=== PATIENT | male | born 1930 | race Caucasian/White ===

== ENCOUNTER 2017-06-12 16:48 | Inpatient (IN) | payer MEDICARE, OTHER ==
--- NOTE | 2017-06-12 17:16 | ED Physician Documentation ---
Psychological Disorders - HISTORIAN Historian: patient <Vita Gandara - Last Filed: 06/12/17 19:27> - HISTORIAN Historian: patient - HPI Chief Complaint: Altered Mental Status Onset: days ago Duration: gradual onset Severity: moderate - ROS CONST: none. denies: fever, chills - PAST HX Psychiatric problems: schizophrenia - Social HX Smoking History: non-smoker Marital Status: single Drug Use: none - Family HX Family HX: mental illness - REVIEWED ASSESSMENTS Nursing Assessment Reviewed: Yes Vitals Reviewed: Yes <Maximilian Joy - Last Filed: 06/26/17 15:27> - HPI Additional Information: 86 yo white male with known paranoid schizophrenia,hypothyroidism, Parkinson disease, history of subdural hematoma with seizure disorder. Patient has had numerous admissions for decompensation in his mental status related to paranoid schizophrenia and depression. Over the last week patient has not been sleeping as well. Over the last4-5 days he has been getting more gradually confused. He has been reported by nursing staff not to be eating or drinking as well. Lab work done today shows elevated BUN and creatinine above baseline, urine analysis is consistent with UTI. Patient is not known to had any fever or chill, he denies any UTI symptoms at this time. Patient has (Maximilian Joy) - PAST HX Allergies/Adverse Reactions: Allergies Allergy/AdvReac Type Severity Reaction Status Date / Time divalproex sodium Allergy Verified 06/12/17 17:11 [From Depakote] gemfibrozil Allergy Verified 06/12/17 17:11 meperidine Allergy Verified 06/12/17 17:11 Home Medications: Ambulatory Orders Medication Instructions Recorded Brimonidine Tartrate [Alphagan P] 1 drop .ROUTE TID 09/24/13 Docusate Sodium [Colace] 100 mg PO BID 09/24/13 Latanoprost [Xalatan] 1 drop EACHEYE HS 09/24/13 Tamsulosin HCl [Flomax] 0.8 mg PO D 09/24/13 Timolol Maleate 1 drop EACHEYE BID 09/24/13 Levothyroxine Sodium [Synthroid] 125 mcg PO DAILY 03/08/14 Polyethylene Glycol 3350 [Miralax] 17 gm PO 1100 03/08/14 Clozapine 125 mg PO HS 03/01/15 Pantoprazole Sodium [Protonix] 40 mg PO BID 03/01/15 Potassium Chloride [Klor-Con M20] 20 meq PO DAILY 03/01/15 Bicalutamide 50 mg PO D 03/03/15 Clozapine [Fazaclo] 25 mg PO AM 03/03/15 Melatonin 1 tab PO HS 06/12/17 Melatonin 4 tab PO HS 06/12/17 Oxybutynin Chloride [Ditropan Xl] 1 tab PO HS 06/12/17 Ciprofloxacin HCl [Cipro] 500 mg PO BID #14 tablet 06/13/17 - VITAL SIGNS Vital Signs: Vital Signs Temp Pulse Resp BP Pulse Ox 99 F 56 L 16 97/48 93 06/13/17 14:22 06/13/17 14:22 06/13/17 14:22 06/13/17 14:22 06/13/17 14:22 - Lab Results Lab Results: Lab Results 06/12/17 06/12/17 06/12/17 17:20 17:20 17:20 WBC 7.30 K/ul K/ul (4.00-12.00) RBC 4.63 M/ul M/ul (3.90-5.20) Hgb 12.9 g/dL g/dL (12.0-18.0) Hct 39.8 % % (37.0-53.0) MCV 85.9 fl fl (80.0-100.0) MCH 27.8 pg L pg (28.0-34.0) MCHC 32.4 g/dL g/dL (30.0-36.0) RDW 14.6 % H % (11.3-14.3) Plt Count 260 K/mm3 K/mm3 (130-400) Neut % (Auto) 80.7 % H % (39.0-79.0) Lymph % (Auto) 12.0 % L % (16.0-50.0) [place] % (Auto) 5.9 % % (0.0-11.0) Eos % (Auto) 0.4 % % (0.0-6.8) Baso % (Auto) 0.1 (0.0-1.5) Neut # (Auto) 5.9 # k/uL # k/uL (1.4-7.7) Lymph # (Auto) 0.9 # k/uL # k/uL (0.6-4.0) [place] # (Auto) 0.4 # k/uL # k/uL (0.0-0.9) Eos # (Auto) 0.0 # k/uL # k/uL (0.0-0.6) Baso # (Auto) 0.0 # k/uL # k/uL (0.0-0.5) Reactive Lymphs % 0.9 % % (0.0-5.0) Reactive Lymphs # 0.1 # k/uL # k/uL (0.0-0.8) Sodium 151 mmol/L H mmol/L (136-145) Potassium 4.2 mmol/L mmol/L (3.5-5.1) Chloride 111 mmol/L H mmol/L (98-107) Carbon Dioxide 21 mmol/L L mmol/L (22-30) BUN 37 mg/dL H mg/dL (9-20) Creatinine 1.20 mg/dL mg/dL (0.66-1.25) Estimated Creat Clear 51 Est GFR ( Amer) > 60 (60 - ) Est GFR (Non-Af Amer) > 60 (60 - ) Glucose 118 mg/dL H mg/dL (74-106) Lactate 1.5 U/L U/L (0.7-2.1) Calcium 9.8 mg/dL mg/dL (8.4-10.2) Total Bilirubin 1.1 mg/dL mg/dL (0.2-1.3) AST 54 U/L H U/L (15-46) ALT 34 U/L U/L (13-69) Alkaline Phosphatase 107 U/L U/L (38-126) Total Protein 9.2 g/dL H g/dL (6.3-8.2) Albumin 5.0 g/dL g/dL (3.5-5.0) - Orders Orders: ED Orders Category Date Time Status Place IV Lock 1T Care 06/12/17 17:[address] BRAIN W/O CONTRAST Stat Exams 06/12/17 Completed BLOOD CULTURE Routine Lab 06/12/17 17:45 Completed CBC/PLATELET/DIFF Routine Lab 06/12/17 17:20 Completed CMP Routine Lab 06/12/17 17:20 Completed LACTATE Routine Lab 06/12/17 17:20 Completed 0.9 % Sodium Chloride [Normal Saline] 1,000 ml Med 06/12/17 17:30 Discontinued IV .Q1H Psych Physical Exam - Physical Exam General Appearance: no acute distress ENT: nml ENT inspection, pharynx nml Eyes: PERRL Mental Status: disoriented Orientation: disoriented Cranial Nerves: CN's intact as tested Sensory, Motor: nml motor response, nml sensory response, nml reflexes, nml gait Neck/Back: normal inspection Respiratory: no resp distress, chest non-tender, breath sounds normal CVS: reg rate & rhythm, heart sounds normal Abdomen: non-tender, no organomegaly, nml bowel sounds, no distention Skin: warm/dry, normal color Extremities: non-tender, normal range of motion, no evidence of injury, no edema <Vita Gandara - Last Filed: 06/12/17 19:27> Discharge <Vita Gandara - Last Filed: 06/12/17 19:27> Decision to Admit: [id number] Date of Decison to Admit: 06/12/17 Decision Time: 19:42 <Maximilian Joy - Last Filed: 06/26/17 15:27> Clincal Impression: Altered mental status Qualifiers: Qualified Code(s): R40.2412 - Condition: Good
[2017-06-12 17:22] LABS: BASOPHILS % 0.1 (0.0-1.5); EOSINOPHILS % 0.4 % (0.0-6.8); MEAN CORPUSCULAR HEMOGLOBIN 27.8 pg (28.0-34.0); MEAN CORPUSCULAR VOLUME 85.9 fl (80.0-100.0); MONOCYTES % 5.9 % (0.0-11.0); NEUTROPHILS # 5.9 # k/uL (1.4-7.7)
[2017-06-12 17:27] LABS: eGFR (Non-African) > 60
[2017-06-12] MEDS ORDERED: 0.9 % SODIUM CHLORIDE 1,000 ML IV SCH (17:30)
[2017-06-12] MEDS ORDERED: 0.9 % SODIUM CHLORIDE 1,000 ML IV ONE (17:50)
--- NOTE | 2017-06-12 18:02 | Diagnostic Imaging Report ---
AMAYA CHENG [facility] [address] [facility] [address] [address] Report Submission Date: June 12, 2017 5:51:22 PM CDT Patient Study Name: ARLEY BATISTA Date: June 12, 2017 5:29:29 PM CDT Modality Type: CT\SR Gender: M Description: CT BRAIN W/O CONTRAST : 30 Institution: [facility] Physician: AMAYA CHENG Examination: CT head without contrast History: PT INCOHERENT (Hx) Comparison exam: None available Technique: Noncontrast head CT protocol. Findings: Ventricles and sulci are prominent. Cerebrocerebellar parenchyma demonstrates periventricular low attenuation consistent with small vessel disease. No evidence for parenchymal hemorrhage. No evidence for mass or mass effect. No midline shift. No extra axial fluid collections. Partial visualization of the paranasal sinuses, mastoid air cells, orbits, skull and scalp without gross irregularity. Impression: Advanced age related changes. No acute parenchymal process. No hemorrhage. Electronically signed on June 12, 2017 5:51:22 PM CDT by: Roberto Carlos Barnes [facility] SYSTEMKatie
[2017-06-12] MEDS: LEVOTHYROXINE SODIUM 100 MCG TABLET PO SCH (19:55)
[2017-06-12] MEDS: 0.9 % SODIUM CHLORIDE 1,000 ML IV SCH (20:10)
[2017-06-12] MEDS: DOCUSATE SODIUM 100 MG CAPSULE PO SCH (20:12)
[2017-06-12] MEDS: MELATONIN 3 MG TABLET PO SCH ×2 (20:12)
[2017-06-12] MEDS: TIMOLOL MALEATE 0.5% OPTH OP SCH (20:13)
[2017-06-12] MEDS: PANTOPRAZOLE SODIUM 40 MG TABLET PO SCH (20:13)
[2017-06-12] MEDS ORDERED: CIPROFLOXACIN/D5W 200 ML IV ONE (20:17)
[2017-06-12] MEDS ORDERED: CIPROFLOXACIN/D5W 400 MG in PREMIX BAG 1 BAG IV SCH (20:30)
[2017-06-12] MEDS ORDERED: LATANOPROST 0.005% OPTH DROP OP SCH (21:00)
[2017-06-12 22:13] VITALS: BMI 22.9
[2017-06-13] MEDS ORDERED: LEVOTHYROXINE SODIUM 25 MCG TABLET ONE (04:17)
[2017-06-13] MEDS: LEVOTHYROXINE SODIUM 100 MCG TABLET PO SCH (05:10)
[2017-06-13 06:44] LABS: BASOPHILS % 0.2 (0.0-1.5); MEAN CORPUSCULAR HEMOGLOBIN 27.4 pg (28.0-34.0); MEAN CORPUSCULAR VOLUME 83.5 fl (80.0-100.0); MONOCYTES % 4.9 % (0.0-11.0); NEUTROPHILS # 3.8 # k/uL (1.4-7.7)
[2017-06-13 06:57] LABS: eGFR (Non-African) > 60
--- NOTE | 2017-06-13 07:59 | History and Physical Report ---
History of Present Illnes - History of Present Illness Reason for Visit: Increasing mental confusion, dehydration, UTI History of Present Illness: 86 yo white male with known paranoid schizophrenia, hypothyroidism, Parkinson disease, history of subdural hematoma with seizure disorder. Patient has had numerous admissions for decompensation in his mental status related to paranoid schizophrenia and depression. Patient currently esides in [facility]. Over the last week the staff states that the patient has not been sleeping as well. Over the last4-5 days he has been getting more gradually confused. He has been reported by nursing staff not to be eating or drinking as well. Lab work done today shows elevated BUN and creatinine above baseline, urine analysis is consistent with UTI. Patient is not known to had any fever or chill, he denies any UTI symptoms at this time. Patient was brought to the ED for evaluation. He was felt to be dehydrated and having a UTI. Attempt to transfer to the [facility] but no beds available at this time. Patient admitted to [facility] for treatemnt until a [place] bed becomes available. 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, Seizure, Other (parkinson's) Psych: Depression, Schizophrenia ([facility] Renal/: Other (Prostate cancer) Endocrine: Hypothyroidism - Past Surgical History Past Surgical History: None - Past Family History Mother Family History: (82yo advanced age) Father Family History: (80yo, advanced age) - Past Social History Smoke: No Occupation: retired Alcohol: None Drugs: None Lives: Intermediate Domestic Violence: Negative - Health Maintenance Health Maintenance: Influenza Vaccine, Pneumococcal Vaccine Influenza Vaccine: Current for this Influenza Season Pneumonia Vaccine: Yes Resuscitation Status: Resusciation Status Resuscitation Status Full Code - Unable to Obtain History Unable to Obtain: No Review of Systems - Review of Systems Constitutional: negative: Fever, Chills, Weakness Eyes: negative: pain, vision change ENT: Nose Discharge (clear), Nose Congestion. negative: Ear Pain, Ear Discharge , Nose Pain, Mouth Pain, Mouth Swelling Respiratory: negative: Cough, Shortness of Breath, Hemoptysis, SOB with Excertion, Pleuritic Pain, Sputum, Wheezing Cardiovascular: negative: Chest Pain, Palpitations, Orthopnea, Edema, Light Headedness Gastrointestinal: Constipation (last ). negative: Nausea, Vomiting, Abdominal Pain, Diarrhea, Melena ( ), Hematochezia (last BM today) Genitourinary: Other (some urgency). negative: Dysuria, Frequency, Incontinence , Hematuria Musculoskeletal: Neck Pain (at baseline). negative: Shoulder Pain, Arm Pain, Back Pain, Hand Pain, Leg Pain Skin: negative: Rash, Lesions Neurological: Confusion. negative: Weakness, Numbness, Incoordination, Seizures (last seizure over one year ago) - Medications/Allergies Allergies/Adverse Reactions: Allergies Allergy/AdvReac Type Severity Reaction Status Date / Time divalproex sodium Allergy Verified 06/12/17 17:11 [From Depakote] gemfibrozil Allergy Verified 06/12/17 17:11 meperidine Allergy Verified 06/12/17 17:11 Home Medications: Home Medications Melatonin [Melatonin] 1 tab PO 06/12/17 Melatonin [Melatonin] 4 tab PO 06/12/17 Oxybutynin Chloride [Ditropan Xl] 1 tab PO 06/12/17 Current Inpatient Medications: Current Inpatient Medications Docusate Sodium (Colace) 100 mg PO BID [facility] Last Admin: 06/12/17 20:12 Dose: 100 mg Sodium Chloride (Normal Saline) 1,000 mls @ 100 mls/hr IV Q10H [facility] Last Admin: 06/12/17 20:10 Dose: 100 mls/hr CIPROFLOXACIN/D5W 400 mg/ (PREMIX BAG) 200 mls @ 200 mls/hr IV QD [facility] Last Admin: 06/12/17 20:20 Dose: 200 mls/hr Latanoprost (Xalatan) 1 drop OP [facility] Last Admin: 06/12/17 20:14 Dose: Not Given Levothyroxine Sodium (Synthroid) 125 mcg PO 0700 [facility] Last Admin: 06/13/17 05:10 Dose: 125 mcg Melatonin (Melatonin) 5 mg PO [facility] Last Admin: 06/12/17 20:12 Dose: 3 mg Pantoprazole Sodium (Protonix) 40 mg PO BID [facility] Last Admin: 06/12/17 20:13 Dose: 40 mg Polyethylene Glycol (Miralax) 17 gm PO 1100 [facility] Potassium Chloride (Klor-Con M20) 20 meq PO DAILY [facility] Tamsulosin HCl (Flomax) 0.8 mg PO D [facility] Timolol Maleate (Timoptic 0.5% Opt) 1 drop OP BID [facility] Last Admin: 06/12/17 20:13 Dose: 1 drop Exam - Exam Vital Signs: Vital Signs (72 hours) 06/12/17 06/12/17 06/12/17 19:52 20:00 22:00 Temperature 96.9 F L Pulse Rate [ 63 63 63 Left Pulse ox] Respiratory 16 16 Rate Blood Pressure 145/69 [Left Arm] O2 Sat by Pulse 96 Oximetry 06/13/17 06/13/17 02:00 06:00 Temperature 97.8 F 98.9 F Pulse Rate [ 60 79 Left Pulse ox] Respiratory 16 14 Rate Blood Pressure 115/61 139/58 [Left Arm] O2 Sat by Pulse 93 94 Oximetry General: Alert, Oriented to Person, Oriented to Place (knew he was at a hosptial ), Cooperative, No acute distress. No: Oriented to Time (did not know month or season) HEENT: Atraumatic, PERRLA, EOMI, Other (mucous membranes slightly dry). No: Pharyngeal Erythema Neck: No: Stridor, Rigidity, Normal Range of Motion Carotids: WNL Thyroid: WNL Lungs: Clear to auscultation, Normal air movement, Speaks full Sentences. No: Wheezes, Rales, Rhonchi Cardiovascular: Regular rate, Normal S1, Normal S2, No murmurs Abdomen: Normal bowel sounds, Soft, No tenderness, No hepatospenomegaly, No masses. No: Distended Integumentary: Normal, [place], Warm, Dry Extremities: No clubbing, No cyanosis, No edema, Normal pulses Neurological: Normal gait, Normal speech, Strength Equal Bilat, Normal tone, Sensation intact, Cranial nerves 3-12 NL, Reflexes 2+ Psych/Mental Status: Mood NL. No: Mental status NL (more confused then baseline ), Appropriate Affect, Intact Judgment - Laboratory Results Laboratory Results: Laboratory Results 06/13/17 06:15 Sodium 147 H Potassium 3.6 Chloride 115 H Carbon Dioxide 19 L BUN 24 H Creatinine 0.80 Estimated Creat Clear 64 Est GFR ( Amer) > 60 Est GFR (Non-Af Amer) > 60 Glucose 111 H Calcium 8.6 Total Bilirubin 1.0 AST 66 H ALT 33 Alkaline Phosphatase 88 Total Protein 7.1 Albumin 3.9 Assessment/Plan - Assessment/Plan (1) UTI (urinary tract infection) Status: Acute Current Visit: Yes Assessment: Will start Cipro IV ,await urine culture results. Recheck labs in AM. Lactate normal. (2) Altered mental status Status: Acute Current Visit: No Qualifiers: Qualified Code(s): R40.2412 - [place] coma scale score 13-15, at arrival to emergency department Assessment: Suspect due to decompensating paranoid schizophrenia, mental status is similar to when this has happened in the past. CT scan of head shows chronic age related changes. (3) shizoaffective disorder Status: Chronic Current Visit: No Assessment: Patient is more confused then baseline (4) Dehydration Status: Acute Current Visit: Yes Assessment: Patient will be started on supplemental IV fluids and I will recheck labs in the AM. (5) Seizure disorder Status: Chronic Current Visit: Yes Assessment: Patient is not on any anticonvulsants at this time. Has not had a seizures in several years. (6) Parkinson's disease Status: Chronic Current Visit: No Assessment: Stable will continue with home medications VTE Assessment - RISK FACTOR SCORE VTE RISK FACTOR SCORES: AGE OVER 60 YEARS, ACUTE INFECTION OTHER THEN SEPSIS - RISK VTE MODERATE RISK: SCORE OF 2 (RISK PROXIMAL DVT 2-4%) PROPHYAXIS NEEDED
[2017-06-13] MEDS ORDERED: POTASSIUM CHLORIDE 20 MEQ TABLET.ER PO SCH (09:00)
[2017-06-13] MEDS ORDERED: TAMSULOSIN HCL 0.4 MG CAP.ER.24H PO SCH (09:00)
[2017-06-13] MEDS: TIMOLOL MALEATE 0.5% OPTH OP SCH (09:45)
[2017-06-13] MEDS: DOCUSATE SODIUM 100 MG CAPSULE PO SCH (09:45)
[2017-06-13] MEDS: PANTOPRAZOLE SODIUM 40 MG TABLET PO SCH (09:45)
[2017-06-13] MEDS: 0.9 % SODIUM CHLORIDE 1,000 ML IV SCH (09:50)
[2017-06-13] MEDS ORDERED: POLYETHYLENE GLYCOL 3350 17 GM POWD.PACK PO SCH (11:00)
[2017-06-13] MEDS ORDERED: PATIENT OWN MED 1 EACH EACH PO SCH ×3 (11:00→21:00)
[2017-06-13 13:26] LABS: APPEARANCE,URINE Clear (CLEAR); COLOR,URINE Yellow (YELLOW); OCCULT BLOOD,URINE Trace-intact (NEGATIVE); PH URINE 5.5 (5.0 - 8.0); UROBILINOGEN URINE 0.2 Eu (0.2-1.0)
[2017-06-13 16:17] VITALS: BP 97/48
[2017-06-13] MEDS ORDERED: MELATONIN 3 MG TABLET PO SCH (21:00)
[2017-06-14] MEDS ORDERED: PATIENT OWN MED 1 EACH EACH PO SCH (09:00)
[2017-06-14] MEDS ORDERED: TOLTERODINE TARTRATE 2 MG CAP.ER.24H PO SCH (09:00)
--- NOTE | 2017-06-26 15:30 | Discharge Summary ---
Discharge Summary - Discharge Sumary History of Present Illness: 86 yo white male with known paranoid schizophrenia, hypothyroidism, Parkinson disease, history of subdural hematoma with seizure disorder. Patient has had numerous admissions for decompensation in his mental status related to paranoid schizophrenia and depression. Patient currently esides in [facility]. Over the last week the staff states that the patient has not been sleeping as well. Over the last4-5 days he has been getting more gradually confused. He has been reported by nursing staff not to be eating or drinking as well. Lab work done today shows elevated BUN and creatinine above baseline, urine analysis is consistent with UTI. Patient is not known to had any fever or chill, he denies any UTI symptoms at this time. Patient was brought to the ED for evaluation. He was felt to be dehydrated and having a UTI. Attempt to transfer to the [facility] but no beds available at this time. Patient admitted to [facility] for treatemnt until a [place] bed becomes available. Condition at Discharge: Stable Home Medications: Ambulatory Orders Medication Instructions Recorded Brimonidine Tartrate [Alphagan P] 1 drop .ROUTE TID 09/24/13 Docusate Sodium [Colace] 100 mg PO BID 09/24/13 Latanoprost [Xalatan] 1 drop EACHEYE HS 09/24/13 Tamsulosin HCl [Flomax] 0.8 mg PO D 09/24/13 Timolol Maleate 1 drop EACHEYE BID 09/24/13 Levothyroxine Sodium [Synthroid] 125 mcg PO DAILY 03/08/14 Polyethylene Glycol 3350 [Miralax] 17 gm PO 1100 03/08/14 Clozapine 125 mg PO HS 03/01/15 Pantoprazole Sodium [Protonix] 40 mg PO BID 03/01/15 Potassium Chloride [Klor-Con M20] 20 meq PO DAILY 03/01/15 Bicalutamide 50 mg PO D 03/03/15 Clozapine [Fazaclo] 25 mg PO AM 03/03/15 Melatonin 1 tab PO HS 06/12/17 Melatonin 4 tab PO HS 06/12/17 Oxybutynin Chloride [Ditropan Xl] 1 tab PO HS 06/12/17 Ciprofloxacin HCl [Cipro] 500 mg PO BID #14 tablet 06/13/17 Allergies/Adverse Reactions: Allergies Allergy/AdvReac Type Severity Reaction Status Date / Time divalproex sodium Allergy Verified 06/12/17 17:11 [From Depakote] gemfibrozil Allergy Verified 06/12/17 17:11 meperidine Allergy Verified 06/12/17 17:11 Discharge Summary: [facility]. Patient was started on Cipro for his urinary tract infection. Patient did remain confused but we did not have any behavioral problems with him. By the following day after admission [facility] indicated that [facility] that they could [facility] him in. [facility]. - Final Diagnosis (1) UTI (urinary tract infection) Problems: under treatment, culture pending (2) Altered mental status Problems: stable, more confused then baseline (3) shizoaffective disorder Problems: stable, (4) Dehydration Problems: improved (5) Seizure disorder Problems: stable (6) Parkinson's disease Problems: stable
== END 2017-06-13 16:00 | disposition short-term general hospital (02) | DRG 690 ==
LOC: ED 16:48 → UNDOADMIN 19:24 → SOUTH 19:24
PROVIDERS: ADMIT Family Medicine; ATTEND Family Medicine
DX: N39.0 Urinary tract infection, site not specified (principal); F20.0 Paranoid schizophrenia; E86.0 Dehydration; F44.89 Other dissociative and conversion disorders; E03.9 Hypothyroidism, unspecified; G20 Parkinson's disease
CPT/HCPCS: 36415; 70450; 80053; 81002; 83605; 85025; 87040; 87086; 87186; A9270; J0744; J7030; 96360; 96361; 96365; 99222; 99238; S1016